=== PATIENT | female | born 1980 | race Caucasian/White ===

== ENCOUNTER → 2016-05-13 | Outpatient (CLI) | payer OTHER ==
--- NOTE | 2016-05-13 14:33 | PN ---
DATE OF SERVICE: 05/13/2016 A 36-year-old lady who has been followed in the [facility] for treatment of obstructive sleep apnea/hypopnea syndrome in severe range. Patient is on treatment with CPAP at the pressure of 9 cm of water and she is using equipment every night for the whole night normally without significant problems, without snoring and without sleepiness during the day. Recently she underwent partial hysterectomy and after surgery because of some discomfort in her belly after surgery, she not be able to use for 2 weeks. Developed some sleepiness. Counselor Sleepiness Scale is 13. Her weight is 5 pounds higher than a year ago 269 came up to 274. Again; otherwise when patient using machine there was no snoring or sleepiness. MEDICATIONS: Lipitor, Januvia. During physical exam, the patient in no distress. BP 128/67, HR 98, RR 16. Height 5 feet 3-1/2, weight 274. BMI 47.7. Temperature 97.6, oxygen saturation at room air 99%. HEENT: PERRLA, EOMI. LUNGS: Clear. HEART: S1, S2 regular. ABDOMEN: Obese. Soft. Nontender. EXTREMITIES: No edema. IMPRESSION: 1. Obstructive sleep apnea/hypopnea syndrome, clinically under control with CPAP at 9 cm of water. Patient benefiting from treatment. 2. Obesity. 3. Diabetes mellitus. 4. Hyperlipidemia. 5. Menopause. 6. Status post partial hysterectomy recently for some abnormal cells. Pathology is benign. 7. Seasonal allergies. 8. Status post appendectomy. PLAN: 1. Patient will restart treatment with CPAP in several days. 2. She will continue to use equipment every night for the whole night. 3. Losing weight. 4. Sleep hygiene with regular time in bed for at least 8 hours. 5. Prescription for all necessary CPAP supplies, including mask, tube, and filters. Thank you very much for allowing me to participate in the management your patient.
== END | disposition home or self-care (01) ==

== ENCOUNTER → 2016-09-21 | Outpatient (CLI) | payer OTHER ==
--- NOTE | 2016-09-21 10:32 | XR ---
EXAMINATION TYPE: XR shoulder limited LT DATE OF EXAM: 09/21/2016 10:08 AM CLINICAL HISTORY: pain COMPARISON: NONE TECHNIQUE: Two views of the left shoulder are obtained. FINDINGS: There is no acute fracture/dislocation evident. The acromioclavicular and glenohumeral courtney int spaces appear within normal limits. The visualized ribs are intact and unremarkable. IMPRESSION: 1. There is no acute fracture or dislocation. ICD 10 NO FRACTURE, INITIAL EVALUATION
== END | disposition home or self-care (01) ==
LOC: RADXRMAIN 09:31
PROVIDERS: ATTEND Family Medicine
DX: M25.512 Pain in left shoulder (principal)

== ENCOUNTER → 2017-06-09 | Outpatient (CLI) | payer OTHER ==
--- NOTE | 2017-06-09 11:22 | PN ---
PROGRESS NOTE DATE OF SERVICE: 06/09/2017 A 37-year-old lady who has been followed in [facility] for treatment of obstructive sleep apnea-hypopnea syndrome. Patient continued to use her CPAP equipment every night for the whole night. CPAP pressure is 9 cm of water. No clear snoring with the machine. Patient does not feel pressure at all when she sleeps and that is why she thinks that she needs to be checked and if necessary, CPAP pressure should be increased. [place] Sleepiness Scale today is 9. MEDICATIONS: Farxiga, Lipitor, glimepiride, lisinopril, aspirin, vitamin D and C supplement. PHYSICAL EXAM: Patient in no distress. BP 121/81, HR 98, RR 16, height 5, 4, weight 264.4, which is 10 pounds less than during visit 1 year ago. Temperature 98.5, oxygen saturation room at room air 97%. OROPHARYNX: Extremely low position of soft palate. ABDOMEN: Obese. Neck Supple, no JVD. Thyroid is not palpable. LUNGS Clear to percussion and to auscultation. Good air exchange. No wheezing or rhonchi. HEART S1, S2 regular. No murmurs, gallops, or rubs. EXTREMITIES No clubbing or cyanosis. DENTURE MODEL MAKER Awake, alert, and oriented X3. Cranial nerves 2 to 7 intact. There is no fasciculation or atrophy. noted. No focal deficits observed. IMPRESSION: 1. Obstructive sleep apnea-hypopnea syndrome. Patient successfully continuing to use her CPAP equipment, benefitting from treatment. 2. Obesity, body mass index of 45.3. Patient lost 10 pounds since previous visit. 3. Diabetes mellitus. 4. Hyperlipidemia. 5. Status post partial hysterectomy. 6. Seasonal allergy. 7. Status post appendectomy. PLAN: 1. Continue treatment with CPAP every night. 2. Patient will check her CPAP with [employer] to be sure that pressure will be measured by manometer and it is 9 cm of water. 3. We will get results of reading from the machine of her apnea-hypopnea index. 4. Continue losing weight. 5. Sleep hygiene with time in bed for at least 8 hours. 6. No driving if feeling any sleepiness. 7. Prescription for all necessary CPAP supplies, including mask, tube, filters. Thank you very much for allowing me to participate in the management of your patient. Sincerely, Nathan Stefadu, MD, PhD, FAASM Diplomat of [place] [employer] [place] [employer] Communications Advisor of [facility] [place] MMKATE / ELIZABETH: [phone] /
== END | disposition home or self-care (01) ==
LOC: SLEEP 10:00
PROVIDERS: ATTEND Internal Medicine
DX: G47.33 Obstructive sleep apnea (adult) (pediatric) (principal); E11.9 Type 2 diabetes mellitus without complications; E66.9 Obesity, unspecified; E78.5 Hyperlipidemia, unspecified; J30.2 Other seasonal allergic rhinitis; Z90.711 Acquired absence of uterus with remaining cervical stump; Z79.82 Long term (current) use of aspirin; Z79.84 Long term (current) use of oral hypoglycemic drugs; Z79.899 Other long term (current) drug therapy; Z90.89 Acquired absence of other organs; Z68.42 Body mass index [BMI] 45.0-49.9, adult; Z99.89 Dependence on other enabling machines and devices

== ENCOUNTER → 2018-05-25 | Outpatient (CLI) | payer OTHER ==
--- NOTE | 2018-05-25 16:47 | PN ---
PROGRESS NOTE DATE OF SERVICE: 05/25/2018 This patient is a 38-year-old lady who has been followed in [facility] for treatment of obstructive sleep apnea-hypopnea syndrome. Patient continues to use her CPAP equipment every night for the whole night without significant problems, but she still thinks that her pressure is not enough. She believes that she maybe snores sometimes with the machine. I checked her CPAP unit. CPAP pressure is 9 cm of water. Usage is borderline. Average usage is 6.4 hours per night. Leak is only 4 L/minute, which is perfect. Apnea- hypopnea index is only 0.3, which is also perfect. [place] Sleepiness Scale today is 10. MEDICATIONS: 1. Lipitor. 2. Farxiga. 3. Glimepiride. 4. Lisinopril. 5. Aspirin. 6. Vitamin D and C supplement. PHYSICAL EXAMINATION: GENERAL: A pleasant patient in no distress. VITAL SIGNS: BP 109/75, HR 88, RR 16, height 5 feet 3-1/2 inches, weight 258, which is 6 pounds less than during her previous visit, body mass index 44.9, temperature 98.2, oxygen saturation at room air 99%. HEENT: PERRLA, EOMI. Evaluation of oropharynx showed tongue protrudes midline. Extremely low position of soft palate. NECK: Supple. No JVD. Thyroid is not palpable. LUNGS: Clear to percussion and to auscultation. Good air exchange. No wheezing or rhonchi. HEART: S1, S2 regular. No murmurs, gallops or rubs. ABDOMEN: Obese. EXTREMITIES: No clubbing or cyanosis. CLEANING STAFF SUPERVISOR: Awake, alert, and oriented X3. Cranial nerves 2 to 7 intact. There is no fasciculation or atrophy. noted. No focal deficits observed. IMPRESSION: 1. Obstructive sleep apnea-hypopnea syndrome. Patient continues to use her CPAP equipment, benefitting from treatment. 2. Obesity. 3. Diabetes mellitus. 4. Hyperlipidemia. 5. Status post partial hysterectomy. 6. Seasonal allergies. 7. Status post appendectomy. PLAN: 1. Patient will continue to use CPAP equipment every night for the whole night. 2. I changed pressure to 10 cm of water. 3. Losing weight. 4. No driving if feeling any sleepiness. 5. Prescription for all necessary CPAP supplies, including mask, tube, filters. 6. Follow-up visit in one year, or earlier if patient has any problems. Thank you very much for allowing me to participate in the management of your patient. Sincerely, Nathan Marin MD, PhD, FAASM Diplomat of [place] Board of Medical Specialties [place] Board of Internal Medicine Manager Book of [facility] [place] [employer]Г / ELIZABETH: [phone] /
== END | disposition home or self-care (01) ==
LOC: SLEEP 15:16
PROVIDERS: ATTEND Internal Medicine
DX: G47.33 Obstructive sleep apnea (adult) (pediatric) (principal); E11.9 Type 2 diabetes mellitus without complications; E78.5 Hyperlipidemia, unspecified; J30.2 Other seasonal allergic rhinitis; E66.9 Obesity, unspecified; Z68.41 Body mass index [BMI] 40.0-44.9, adult; Z90.89 Acquired absence of other organs; Z90.711 Acquired absence of uterus with remaining cervical stump; Z99.89 Dependence on other enabling machines and devices; Z79.899 Other long term (current) drug therapy; Z79.82 Long term (current) use of aspirin

== ENCOUNTER 2020-12-25 10:12 | Emergency (ER) | payer OTHER ==
[2020-12-25 10:18] VITALS: TEMP 98.2
[2020-12-25] MEDS ORDERED: diphenhydrAMINE 50 MG/ML 1 ML VIAL IVP STA (10:29)
[2020-12-25] MEDS ORDERED: SODIUM CHLORIDE 0.9% 1,000 ML IV STA (10:29)
[2020-12-25] MEDS ORDERED: methylPREDNISolone SOD SUCCI 125 MG/2 ML VIAL IV STA (10:33)
--- NOTE | 2020-12-25 10:37 | ED ---
Headache HPI - General Chief Complaint: Headache Stated Complaint: Headache/nausea Source: patient, RN notes reviewed Mode of arrival: ambulatory Limitations: no limitations - History of Present Illness Initial Comments: 40-year-old female alert and oriented 4, presents to the emergency room with complaints of migraine headache. She states that this is typical for her normal migraine headaches however Excedrin Migraine did not work today. She called her doctor's office and told her to come to the emergency room. MD Complaint: headache -: days(s) (1) Onset Description: gradual Location: frontal, occipital Severity scale (1-10): 8 Quality: aching, similar to previous headaches Consistency: constant Improves With: nothing - Related Data Home Medications Medication Instructions Recorded Confirmed Atorvastatin [Lipitor] 40 mg PO DAILY 03/28/15 12/25/20 ALPRAZolam [Xanax] 0.25 mg PO BID PRN 12/25/20 12/25/20 Canagliflozin [Invokana] 100 mg PO DAILY 12/25/20 12/25/20 Dicyclomine [Bentyl] 10 mg PO BID 12/25/20 12/25/20 Ezetimibe [Zetia] 10 mg PO DAILY 12/25/20 12/25/20 Fluconazole [Diflucan] 150 mg PO TH 12/25/20 12/25/20 INSULIN LISPRO (HumaLOG) [humaLOG] 30 units SQ AC-TID 12/25/20 12/25/20 Insulin Glargine [Lantus] 40 unit SQ BID 12/25/20 12/25/20 glipiZIDE XL [Glucotrol Xl] 10 mg PO DAILY 12/25/20 12/25/20 hydroCHLOROthiazide 25 mg PO DAILY 12/25/20 12/25/20 lisinopriL 10 mg PO DAILY 12/25/20 12/25/20 Allergies Allergy/AdvReac Type Severity Reaction Status Date / Time adhesive tape Allergy Mild Rash/Hives Verified 12/25/20 11:52 naproxen AdvReac Intermediate Swelling Verified 12/25/20 11:52 Review of Systems ROS Statement: Those systems with pertinent positive or pertinent negative responses have been documented in the HPI. ROS Other: All systems not noted in ROS Statement are negative. Past Medical History Past Medical History: Diabetes Mellitus, Hyperlipidemia Additional Past Medical History / Comment(s): non-menstration since 1999, sleep apnea, migraines History of Any Multi-Drug Resistant Organisms: None Reported Past Surgical History: Appendectomy, Hysterectomy Additional Past Surgical History / Comment(s): D&C Past Anesthesia/Blood Transfusion Reactions: No Reported Reaction Past Psychological History: No Psychological Hx Reported Smoking Status: Never smoker Past Alcohol Use History: None Reported Past Drug Use History: None Reported - Past Family History Mother Family Medical History: Cancer Additional Family Medical History / Comment(s): BREAST CANCER Father Family Medical History: Coronary Artery Disease (CAD) Additional Family Medical History / Comment(s): etoh, smoker, at age 58 from twisted bowels. General Exam Limitations: no limitations General appearance: alert, in no apparent distress Head exam: Present: atraumatic, normocephalic, normal inspection Eye exam: Present: normal appearance, PERRL, EOMI. Absent: scleral icterus, co njunctival injection, periorbital swelling Pupils: Present: normal accommodation ENT exam: Present: normal exam, normal oropharynx, mucous membranes moist Neck exam: Present: normal inspection, full ROM. Absent: tenderness, meningismus, lymphadenopathy, thyromegaly Respiratory exam: Present: normal lung sounds bilaterally. Absent: respiratory distress, wheezes, rales, rhonchi, stridor, chest wall tenderness, accessory muscle use, decreased breath sounds Cardiovascular Exam: Present: regular rate, normal rhythm, normal heart sounds. Absent: systolic murmur, diastolic murmur, rubs, gallop, clicks GI/Abdominal exam: Present: soft, normal bowel sounds, other (Bruising noted to right lower quadrant from insulin injections). Absent: distended, tenderness, guarding, rebound, rigid Extremities exam: Present: normal inspection, full ROM, normal capillary refill. Absent: tenderness, pedal edema, joint swelling, calf tenderness Back exam: Present: normal inspection, full ROM. Absent: tenderness, CVA tenderness (R), CVA tenderness (L), muscle spasm, paraspinal tenderness, vertebral tenderness, rash noted Neurological exam: Present: alert, oriented X3, CN II-XII intact Expanded Patient oriented to: Present: person, place, time Speech: Present: fluid speech Cranial nerves: EOM's Intact: Normal, Gag Reflex: Normal, Tongue Deviation: Normal Eye Response: (4) open spontaneously Motor Response: (6) obeys commands Verbal Response: (5) oriented Radames Total: 15 Psychiatric exam: Present: normal affect, normal mood Skin exam: Present: warm, dry, intact, normal color. Absent: rash, cyanosis, diaphoretic, erythema, petechiae, pallor Course Vital Signs 12/25/20 10:16 Temperature 98.2 F Pulse Rate 80 Respiratory 18 Rate Blood Pressure 152/100 O2 Sat by Pulse 96 Oximetry Medical Decision Making - Medical Decision Making Patient feeling much better after Solu-Medrol and Benadryl and 1 L of normal saline. She states she is ready to go home. Patient is a diabetic and her glucose was 226 she was given a liter of fluids, advised to continue monitoring her blood glucose levels at home and report back to her primary care doctor. She is requesting a note for work today. Follow up with her primary care doctor as needed. Return to the emergency room with any worsening symptoms including increased headache, fevers. Case discussed with Dr. Tiwari. - Lab Data Result diagrams: 12/25/20 10:57 12/25/20 10:57 Lab Results 12/25/20 12/25/20 Range/Units 10:57 10:57 WBC 8.9 (3.8-10.6) k/uL RBC 4.54 (3.80-5.40) m/uL Hgb 13.4 (11.4-16.0) gm/dL Hct 40.6 (34.0-46.0) % MCV 89.4 (80.0-100.0) fL MCH 29.5 (25.0-35.0) pg MCHC 33.0 (31.0-37.0) g/dL RDW 15.1 (11.5-15.5) % Plt Count 259 (150-450) k/uL MPV 8.6 Neutrophils % 67 % Lymphocytes % 25 % Monocytes % 5 % Eosinophils % 1 % Basophils % 1 % Neutrophils # 6.0 (1.3-7.7) k/uL Lymphocytes # 2.2 (1.0-4.8) k/uL Monocytes # 0.4 (0-1.0) k/uL Eosinophils # 0.1 (0-0.7) k/uL Basophils # 0.0 (0-0.2) k/uL Sodium 137 (137-145) mmol/L Potassium 4.4 (3.5-5.1) mmol/L Chloride 104 (98-107) mmol/L Carbon Dioxide 24 (22-30) mmol/L Anion Gap 9 mmol/L BUN 7 (7-17) mg/dL Creatinine 0.55 (0.52-1.04) mg/dL Est GFR (CKD-EPI)AfAm >90 (>60 ml/min/1.73 sqM) Est GFR (CKD-EPI)NonAf >90 (>60 ml/min/1.73 sqM) Glucose 226 H (74-99) mg/dL Calcium 9.1 (8.4-10.2) mg/dL Total Bilirubin 0.3 (0.2-1.3) mg/dL AST 34 (14-36) U/L ALT 40 H (4-34) U/L Alkaline Phosphatase 130 H (38-126) U/L Total Protein 6.9 (6.3-8.2) g/dL Albumin 4.3 (3.5-5.0) g/dL Disposition Clinical Impression: Headache Disposition: HOME SELF-CARE Condition: Good Instructions (If sedation given, give patient instructions): Acute Headache (ED) Additional Instructions: Return to the emergency room with any worsening symptoms or new symptoms. Follow-up with your primary care doctor next week. Is patient prescribed a controlled substance at d/c from ED?: No Referrals: Pato Hernandez MD [Primary Care Provider] - 1-2 days Time of Disposition: 12:43
[2020-12-25 11:49] LABS: Basophils % (A) 1 %; Eosinophils # (A) 0.1 k/uL (0-0.7); Eosinophils % (A) 1 %; HCT 40.6 % (34.0-46.0); HGB 13.4 gm/dL (11.4-16.0); Lymphocytes # (A) 2.2 k/uL (1.0-4.8); Lymphocytes % (A) 25 %; MCH 29.5 pg (25.0-35.0); MCV 89.4 fL (80.0-100.0); Mean Platelet Volume 8.6; Monocytes # (A) 0.4 k/uL (0-1.0); Monocytes % (A) 5 %; Neutrophils % (A) 67 %; Platelet Count 259 k/uL (150-450); RBC 4.54 m/uL (3.80-5.40); RDW 15.1 % (11.5-15.5); WBC 8.9 k/uL (3.8-10.6)
[2020-12-25 12:01] LABS: ALT 40 U/L (4-34); AST 34 U/L (14-36); African American GFR (CKD) >90 (>60 ml/min/1.73 sqM); Albumin 4.3 g/dL (3.5-5.0); Alkaline Phosphatase 130 U/L (38-126); Anion Gap 9 mmol/L; Blood Urea Nitrogen 7 mg/dL (7-17); Calcium 9.1 mg/dL (8.4-10.2); Carbon Dioxide 24 mmol/L (22-30); Chloride 104 mmol/L (98-107); Glucose 226 mg/dL (74-99); Non-African American GFR(CKD) >90 (>60 ml/min/1.73 sqM); Potassium 4.4 mmol/L (3.5-5.1); Sodium 137 mmol/L (137-145); Total Bilirubin 0.3 mg/dL (0.2-1.3); Total Protein 6.9 g/dL (6.3-8.2)
[2020-12-25 12:58] VITALS: BP 128/78; PULSE 89; RESP 16
== END 2020-12-25 12:56 | disposition home or self-care (01) ==
LOC: EC 10:12
DX: R51.9 Headache, unspecified (principal); E11.9 Type 2 diabetes mellitus without complications; E78.5 Hyperlipidemia, unspecified; Z79.4 Long term (current) use of insulin; Z79.899 Other long term (current) drug therapy; Z82.49 Family history of ischemic heart disease and other diseases of the circulatory system
CPT/HCPCS: 36415; 80053; 85025; 96374; 96375; 96361; 99284; J1200; J2930

== ENCOUNTER 2024-01-13 09:06 | Emergency (ER) | payer BC, OTHER ==
[2024-01-13 09:36] VITALS: RESP 18; TEMP 98
--- NOTE | 2024-01-13 09:59 | ED ---
Skin/Abscess/FB HPI - General Chief complaint: Skin/Abscess/Foreign Body Stated complaint: toe lac Time Seen by Provider: 01/13/24 09:58 Source: patient, family, RN notes reviewed Mode of arrival: ambulatory Limitations: no limitations - History of Present Illness Initial comments: 43-year-old female presented to the ER with a chief complaint of left third digit injury. Patient states last night while cleaning off the counter hair clippers accidentally fell landing on her third toe. She states she was seen at [facility] yesterday and had wound cleaned and was started on Keflex. She has not started antibiotics as she was seen late last night. Wound was also glued closed. She states this morning she noticed persistent bleeding. She is not on any blood thinners. She presents to the ER today for evaluation of further bleeding. She does report pain with palpation and range of motion. Denies any paresthesias. No other injuries or complaints. Tetanus status unknown. - Related Data Home Medications Medication Instructions Recorded Confirmed Atorvastatin [Lipitor] 40 mg PO DAILY 03/28/15 12/25/20 ALPRAZolam [Xanax] 0.25 mg PO BID PRN 12/25/20 12/25/20 Canagliflozin [Invokana] 100 mg PO DAILY 12/25/20 12/25/20 Dicyclomine [Bentyl] 10 mg PO BID 12/25/20 12/25/20 Ezetimibe [Zetia] 10 mg PO DAILY 12/25/20 12/25/20 Fluconazole [Diflucan] 150 mg PO TH 12/25/20 12/25/20 INSULIN LISPRO (HumaLOG) [humaLOG] 30 units SQ AC-TID 12/25/20 12/25/20 Insulin Glargine [Lantus] 40 unit SQ BID 12/25/20 12/25/20 glipiZIDE XL [Glucotrol Xl] 10 mg PO DAILY 12/25/20 12/25/20 hydroCHLOROthiazide 25 mg PO DAILY 12/25/20 12/25/20 lisinopriL [Prinivil] 10 mg PO DAILY 12/25/20 12/25/20 Allergies Allergy/AdvReac Type Severity Reaction Status Date / Time adhesive tape Allergy Mild Rash/Hives Verified 01/13/24 09:35 naproxen AdvReac Intermediate Swelling Verified 01/13/24 09:35 Review of Systems ROS Statement: Those systems with pertinent positive or pertinent negative responses have been documented in the HPI. ROS Other: All systems not noted in ROS Statement are negative. Past Medical History Past Medical History: Diabetes Mellitus, Hyperlipidemia Additional Past Medical History / Comment(s): non-menstration since 1999, sleep apnea, migraines History of Any Multi-Drug Resistant Organisms: None Reported Past Surgical History: Appendectomy, Hysterectomy Additional Past Surgical History / Comment(s): D&C Past Anesthesia/Blood Transfusion Reactions: No Reported Reaction Past Psychological History: No Psychological Hx Reported Smoking Status: Never smoker Past Alcohol Use History: None Reported Past Drug Use History: None Reported - Past Family History Mother Family Medical History: Cancer Additional Family Medical History / Comment(s): BREAST CANCER Father Family Medical History: Coronary Artery Disease (CAD) Additional Family Medical History / Comment(s): etoh, smoker, at age 58 from twisted bowels. General Exam Limitations: no limitations General appearance: alert, in no apparent distress Respiratory exam: Present: normal lung sounds bilaterally. Absent: respiratory distress, wheezes, rales, rhonchi, stridor Cardiovascular Exam: Present: regular rate, normal rhythm, normal heart sounds. Absent: systolic murmur, diastolic murmur, rubs, gallop, clicks Extremities exam: Present: normal inspection, full ROM, tenderness (right 3rd digit. Overlying wound with minimal active bleeding. There is circumferential bruising to DIP joint. Patient has full active range of motion. 2+ dorsalis pedis and posterior tibialis pulses. No other focal bony tenderness. Sensation intact.), normal capillary refill. Absent: pedal edema, joint swelling, calf tenderness Neurological exam: Present: alert, oriented X3, CN II-XII intact Skin exam: Present: warm, dry, intact, normal color. Absent: rash Course Vital Signs 01/13/24 01/13/24 09:32 11:22 Temperature 98 F 98 F Pulse Rate 107 H 85 Respiratory 18 18 Rate Blood Pressure 152/72 139/90 O2 Sat by Pulse 98 97 Oximetry Medical Decision Making - Medical Decision Making Was pt. sent in by a medical professional or institution (, PA, APPLICATION INTEGRATION ARCHITECT, urgent care, hospital, or shelter...) When possible be specific @ -No Did you speak to anyone other than the patient for history (EMS, parent, family, police, friend...)? What history was obtained from this source @ -No Did you review nursing and triage notes (agree or disagree)? Why? @ -I reviewed and agree with nursing and triage notes Were old charts reviewed (outside hosp., previous admission, EMS record, old EKG, old radiological studies, urgent care reports/EKG's, shelter records)? Report findings @ -No old charts were reviewed Differential Diagnosis (chest pain, altered mental status, abdominal pain women, abdominal pain men, vaginal bleeding, weakness, fever, dyspnea, syncope, headache, dizziness, GI bleed, back pain, seizure, CVA, palpatations, mental health, musculoskeletal)? @ -Differential Musculoskeletal: Muscular strain, contusion, ligament sprain, fracture, arthritis, septic arthritis, bursitis, cellulitis, muscle spasm, nerve compression, DVT, arterial occlusion, herpes zoster, electrolyte abnormality, tumor.... This is not meant to be in all inclusive list EKG interpreted by me (3pts min.). @ -None X-rays interpreted by me (1pt min.). @ -Right foot x-ray showing a tuft fracture to third digit. CT interpreted by me (1pt min.). @ -None done U/S interpreted by me (1pt. min.). @ -None done What testing was considered but not performed or refused? (CT, X-rays, U/S, labs)? Why? @ -None What meds were considered but not given or refused? Why? @ -None Did you discuss the management of the patient with other professionals (professionals i.e. , PA, APPLICATION INTEGRATION ARCHITECT, lab, RT, psych nurse, director social service, drill presser, teacher, hospital chief financial officer, case folder)? Give summary @ -No Was smoking cessation discussed for >3mins.? @ -No Was critical care preformed (if so, how long)? @ -No Were there social determinants of health that impacted care today? How? (Homelessness, low income, unemployed, alcoholism, drug addiction, transportation, low edu. Level, literacy, decrease access to med. care, usp, rehab)? @ -No Was there de-escalation of care discussed even if they declined (Discuss DNR or withdrawal of care, Hospice)? DNR status @ -No What co-morbidities impacted this encounter? (DM, HTN, Smoking, COPD, CAD, Cancer, CVA, ARF, Chemo, Hep., AIDS, mental health diagnosis, sleep apnea, morbid obesity)? @ -None Was patient admitted / discharged? Hospital course, mention meds given and route, prescriptions, significant lab abnormalities, going to OR and other pertinent info. @ -Discharge. 43-year-old female presenting to the ER with a chief complaint of a right third digit injury. History and physical exam completed. Vitals within normal limits. Patient in no signs of acute distress and nontoxic- appearing. Right lower extremity neurovascular intact. There is a superficial wound with minimal active bleeding to dorsal aspect of foot. Circumferential bruising to DIP joint. Patient has full active range of motion. X-rays obtained showing a tuft fracture of the third digit. Patient received by mouth Tylenol for pain control in the ER. Tetanus updated. Due to concern of open fracture due to fracture and overlying skin injury IM Ancef given. Patient was prescribed Keflex at [facility]. I advised her to take these as prescribed and to follow-up closely with orthopedics. Orthopedic shoe given. Strict return parameters discussed. Patient discharged in stable condition with follow-up to orthopedics. Patient verbally expressed understanding and agreed with care plan. Case discussed with ED attending, Dr. Garcia. Undiagnosed new problem with uncertain prognosis? @ -No Drug Therapy requiring intensive monitoring for toxicity (Heparin, Nitro, Insulin, Cardizem)? @ -No Were any procedures done? @ -No Diagnosis/symptom? @ -Tuft fracture distal phalanx Acute, or Chronic, or Acute on Chronic? @ -Acute Uncomplicated (without systemic symptoms) or Complicated (systemic symptoms)? @ -Uncomplicated Side effects of treatment? @ -No Exacerbation, Progression, or Severe Exacerbation? @ -No Poses a threat to life or bodily function? How? (Chest pain, [place], [place], pneumonia, PE, COPD, DKA, ARF, appy, cholecystitis, CVA, Diverticulitis, Homicidal, Suicidal, threat to staff... and all critical care pts) @ -No - Radiology Data Radiology results: report reviewed, image reviewed Disposition Clinical Impression: Fracture of distal phalanx of toe of left foot Disposition: HOME SELF-CARE Condition: Stable Instructions (If sedation given, give patient instructions): Toe Fracture (ED) Additional Instructions: Complete full course of Keflex as prescribed by [facility]. Follow-up with PCP and orthopedics. I recommend ice, rest, elevation and [id number] Tylenol and Motrin for pain control. Return to the ER if any new or worsening concerns. Is patient prescribed a controlled substance at d/c from ED?: No Referrals: Pato Hernandez MD [Primary Care Provider] - 1-2 days Yoel Escamilla DO [Doctor of Osteopathic Medicine] - 1-2 days Time of Disposition: 11:01
[2024-01-13] MEDS: ACETAMINOPHEN TAB 325 MG TAB PO STA (10:30)
[2024-01-13] MEDS: DIPH,PERTUS(ACELL)TETVAC-LF 0.5 ML VIAL IM ONE (10:31)
--- NOTE | 2024-01-13 10:38 | XR ---
Left foot HISTORY: Third toe injury. COMPARISON: None TECHNIQUE: 3 views left foot were obtained. FINDINGS: There is a minimally displaced transverse tuft fracture distal phalanx of the third toe. Remaining osseous structures and articulations are normal. There are no soft tissue abnormalities. IMPRESSION: Tuft fracture of the third toe as described.
[2024-01-13] MEDS: ceFAZolin 1,000 MG VIAL (IM USE) IM STA (11:14)
[2024-01-13 11:24] VITALS: BP 139/90; PULSE 85
== END 2024-01-13 11:23 | disposition home or self-care (01) ==
LOC: EC 09:06
DX: S91.112A Laceration without foreign body of left great toe without damage to nail, initial encounter
CPT/HCPCS: 90471; 90715; 96372; 99283